=== PATIENT | male | born 1970 | race Caucasian/White ===

== ENCOUNTER 2017-07-16 11:09 | Emergency (ER) | payer OTHER ==
[~2017-07-16] VITALS: Ht 172.7 cm; Wt 94.1 kg
[~2017-07-16 11:09] MED LIST: ZOFRAN8 MG PO
[2017-07-16 12:07] LABS: HEMATOCRIT 41.2 % (38.0-50.0); MCHC 34.2 G/DL (30.0-36.0); MCV 87.7 FL (86-99); MEAN PLAT.VOLUME 11.9 uM^3 (9.0-12.4); PLATELET COUNT 159 K/uL (156-360); RBC DIS.WIDTH-CV 11.9 % (11.8-14.6); RBC DIS.WIDTH-SD 38.8 % (39-53); WHITE BLOOD COUNT 5.5 K/uL (4.1-10.2)
[2017-07-16 12:15] LABS: CHLORIDE 109 mEq/L (99-109); POTASSIUM 4.4 mEq/L (3.7-5.4); SODIUM 142 mEq/L (136-147)
[2017-07-16 12:16] LABS: GLUCOSE 99 mg/dL (70-99)
[2017-07-16 12:18] LABS: ANION GAP 11 MEQ/L (2-14)
[2017-07-16 12:20] LABS: GFR ESTIMATE (CALCULATED) > 59 mL/min/
[2017-07-16 12:21] LABS: UREA NITROGEN (BUN) 19 mg/dL (9-23)
[2017-07-16 12:29] LABS: TROP-I INTERPRETATION NEGATIVE; TROPONIN-I < 0.01 ng/mL (0.0-0.30)
[2017-07-16 14:35] LABS: TROP-I INTERPRETATION NEGATIVE; TROPONIN-I < 0.01 ng/mL (0.0-0.30)
[2017-07-16] MEDS ORDERED: NAPROSYN500 MG PO (14:53)
[2017-07-16] MEDS ORDERED: FLEXERIL10 MG PO (14:53)
[2017-07-16 15:02] VITALS: BP 129/82
== END 2017-07-16 15:03 | disposition home or self-care (01) ==
LOC: EME 11:09
PROVIDERS: Nurse Practitioner Family
DX: R07.89 Other chest pain (principal); M94.0 Chondrocostal junction syndrome [Tietze]; Z87.891 Personal history of nicotine dependence
CPT/HCPCS: 71020; 80048; 84484; 85027; 93005; 99281; 99284